=== PATIENT | female | born 2000 | race Caucasian/White ===

== ENCOUNTER 2021-10-24 23:33 | Emergency (ER) | payer OTHER ==
[~2021-10-24] VITALS: Ht 177.8 cm; Wt 63.6 kg
[2021-10-24] MEDS ORDERED: BIRTH CONTROL PO (23:47)
[2021-10-25 00:21] VITALS: BP 131/98
== END 2021-10-25 00:21 | disposition home or self-care (01) ==
LOC: ED 23:33
DX: S09.90XA Unspecified injury of head, initial encounter (principal); V49.40XA Driver injured in collision with unspecified motor vehicles in traffic accident, initial encounter